=== PATIENT | male | born 1970 | race Caucasian/White ===

== ENCOUNTER 2025-06-12 19:56 | Emergency (ER) | payer SELFPAY ==
[~2025-06-12] VITALS: Ht 154.9 cm; Wt 66.0 kg
[2025-06-12 20:01] VITALS: TEMP 98.8; O2SAT 97
[2025-06-12] MEDS: SODIUM CHLORIDE 0.9% 1,000 ML IV ONE (21:30)
[2025-06-12 21:45] LABS: BASOPHILS % 1.0 % (0.0-2.0); EOSINOPHILS % 0.9 % (0.0-5.0); HEMATOCRIT. 49.2 % (42.0-52.0); HEMOGLOBIN. 16.2 g/dL (14.0-18.0); LYMPHOCYTES % 34.1 % (20.0-50.0); MONOCYTES % 10.2 % (2.0-8.0); NEUTROPHILS % 53.8 % (40.0-76.0); RED BLOOD CELL COUNT 5.18 mill/uL (4.7-6.1); RED CELL DISTRIBUTION WIDTH 13.9 % (11.6-14.6)
[2025-06-12 21:58] LABS: CREATININE 0.6 mg/dL (0.6-1.3); UREA NITROGEN BLOOD 7 mg/dL (9-23)
[2025-06-12 22:02] LABS: MEAN PLATELET VOLUME 6.6 fl (7.4-10.4); PLATELET 287 x1000/uL (130-400)
[2025-06-12 22:16] LABS: ETHANOL BLOOD 402 mg/dL (<10)
[2025-06-12 23:01] VITALS: BP 138/79; PULSE 88; RESP 18; O2SAT 100
== END 2025-06-12 23:01 | disposition home or self-care (01) ==
LOC: ER 19:56
DX: F10.129 Alcohol abuse with intoxication, unspecified (principal); R51.9 Headache, unspecified; W19.XXXA Unspecified fall, initial encounter; Y93.89 Activity, other specified; Y92.89 Other specified places as the place of occurrence of the external cause; Y99.8 Other external cause status; Y90.8 Blood alcohol level of 240 mg/100 ml or more
CPT/HCPCS: 80048; 80320; 85025; 36415; 70450; 72125; 99284; J7030; G0480